=== PATIENT | female | born 1960 | race Caucasian/White ===

== ENCOUNTER → 2020-06-14 | Outpatient (CLI) | payer OTHER | LOC: LAB 18:59 | DX: Z02.83 Encounter for blood-alcohol and blood-drug test (principal) | CPT/HCPCS: 36415 ==

== ENCOUNTER 2020-12-12 11:05 | Emergency (ER) | payer SELFPAY ==
[~2020-12-12] VITALS: Ht 162.6 cm; Wt 67.6 kg
--- NOTE | 2020-12-12 11:18 | PHYS DOC ---
General Adult EDM: Chief Complaint: SEIZURE HPI: HPI: Patient is a 60-year-old female brought in by EMS after a witnessed seizure 50 minutes prior to arrival that lasted about 45 seconds. Patient was at the [facility] to establish care and resume her medications for hypertension. Not been taking her hypertension medications for about 3 months. Patient states that she felt good this morning and when she went to the appointment, denies any stressors or anything abnormal about the conversation. Patient states that she had a sudden onset all over headache with nausea and all over body aches, was getting up to go to the restroom, was last thing she remembered. EMS states t hat she was lowered to the ground and did not fall. On their arrival she was GCS 15 but got report from clinic staff that she was confused for a period after the seizure. Has had both of her Covid vaccines Review of Systems: Review of Systems: All other systems within normal limits except for as noted in the HPI Physical Exam: PE: Constitutional: Well developed, well nourished, no acute distress, non-toxic appearance. [] HENT: Normocephalic, atraumatic, bilateral external ears normal, nose normal. [] Eyes: PERRLA, conjunctiva normal, no discharge. [] Neck: No rigidity, supple, no stridor. [] Cardiovascular: Regular rate and rhythm, brisk cap refill [] Lungs & Thorax: Non labored symmetric respirations, no tachypnea or respiratory distress [] Abdomen: Soft, nondistended. Skin: Warm, dry, no erythema, no rash. [] Back: Unremarkable Extremities: No deformities, range of motion grossly intact, no lower extremity edema [] Neurologic: Alert and oriented X 3, no focal deficits noted. [] Psychologic: Affect normal, judgement normal, mood normal. [] EKG: EKG: Regular regular rhythm, heart rate 170 bpm, left axis deviation, no ST elevation or depression[] Radiology/Procedures: Radiology/Procedures: [address] [address] IMAGING REPORT Signed PATIENT: DEVON YBARRA ACCOUNT: [id number] : 1960 LOCATION: ER AGE: 60 SEX: F EXAM STATUS: REG ER ORD. PHYSICIAN: MELISA IRVIN MD REASON: seizure after sudden onset headache PROCEDURE: CT HEAD WO CONTRAST EXAM: CT head without contrast INDICATION: Seizure, sudden onset headache COMPARISON: None TECHNIQUE: Axial CT imaging through the head without intravenous contrast. One or more of the following individualized dose reduction techniques were utilized for this examination: 1. Automated exposure control 2. Adjustment of the mA and/or kV according to patient size 3. Use of iterative reconstruction technique. FINDINGS: There is diffuse acute subarachnoid hemorrhage throughout the basal cisterns, sylvian fissures, anterior interhemispheric fissure, and frontal, parietal, and temporal lobes sulci. Ventricles are normal in size. No midline shift. No acute fracture. Paranasal sinuses and mastoid air cells are clear. Probable osteoma in the left ethmoid air cells. Globes and orbits are intact. IMPRESSION: Acute subarachnoid hemorrhage, as described. Consider CTA head to evaluate for aneurysm and MRI brain with and without contrast to evaluate for underlying mass. FOR INTERNAL CODING PURPOSES Critical result: Findings discussed with Dr. Irvin at 12/12/2020 11:37 AM. RESULT CODE: (C) Electronically signed by: Melisa Toledo MD (12/12/2020 11:44 AM) [id number] DICTATED AND SIGNED BY: MELISA TOLEDO MD DATE: 12/12/20 1134 CC: MELISA IRVIN MD; PCP,NO ~MTH0 0 [] Heart Score: C/O Chest Pain: No Risk Factors: Risk Factors: DM, Current or recent (<one month) smoker, HTN, HLP, family history of CAD, obesity. Risk Scores: Score 0 - 3: 2.5% MACE over next 6 weeks - Discharge Home Score 4 - 6: 20.3% MACE over next 6 weeks - Admit for Clinical Observation Score 7 - 10: 72.7% MACE over next 6 weeks - Early Invasive Strategies Course & Med Decision Making: Course & Med Decision Making Pertinent Labs and Imaging studies reviewed. (See chart for details) Patient vomiting and not tolerating CD. CT without contrast shows large subarachnoid hemorrhage. Decided to bring patient back to room for pain, and blood pressure management with nicardipine with a goal of systolic less than 140, discussed with [facility] transfer team at 1135. Accepting transfer physician Dr. Shaikh, neuro surgery would like blood pressure further reduced to a systolic of 120. Plan for patient to be seen in the emergency department for stat CT angio and possible IR intervention since bleeding likely due to aneurysm. Patient brought by helicopter to [facility] emergency department neurally intact with a GCS of 15. Total critical care time: 60 The time involved in the performance of separately reportable/billable procedur es was not counted toward critical care time. Due to a high probability of clinically significant, life-threatening deterioration the patient required a high level of care to intervene emergently and I personally spent this critical time directly and personally managing the patient. The critical care time included obtaining a history, examination of the patient, assessment of vital signs, ordering and review of studies, arranging urgent treatment with development of a management plan, evaluation of patient's response to treatment, frequent reassessment, and discussions with other providers and/or family members. [] Theron Disclaimer: Theron Disclaimer: This electronic medical record was generated, in whole or in part, using a voice recognition dictation system. Departure Departure: Impression: Primary Impression: SAH (subarachnoid hemorrhage) Additional Impression: Hypertension Disposition: 02 SHORT TERM HOSPITAL Condition: CRITICAL Referrals: PCP,NO (PCP) MELISA IRVIN MD Dec 12, 2020 11:18
[2020-12-12] MEDS ORDERED: ONDANSETRON PF 4 MG/2 ML VIAL. ONE (11:28)
[2020-12-12] MEDS ORDERED: niCARdipine INJ. IV ONE (11:40)
[2020-12-12] MEDS ORDERED: IV NORMAL SALINE 250ML 250 ML ONE (11:41)
--- NOTE | 2020-12-12 11:47 | RAD ---
EXAM: CT head without contrast INDICATION: Seizure, sudden onset headache COMPARISON: None TECHNIQUE: Axial CT imaging through the head without intravenous contrast. One or more of the following individualized dose reduction techniques were utilized for this examinat ion: 1. Automated exposure control 2. Adjustment of the mA and/or kV according to patient size 3. Use of iterative reconstruction technique. FINDINGS: There is diffuse acute subarachnoid hemorrhage throughout the basal cisterns, sylvian fissures, anter ior interhemispheric fissure, and frontal, parietal, and temporal lobes sulci. Ventricles are normal in size. No midline shift. No acute fracture. Paranasal sinuses and mastoid air cells are clear. Prob able osteoma in the left ethmoid air cells. Globes and orbits are intact. IMPRESSION: Acute subarachnoid hemorrhage, as described. Consider CTA head to evaluate for aneurysm a nd MRI brain with and without contrast to evaluate for underlying mass. FOR INTERNAL CODING PURPOSES Critical result: Findings discussed with Dr. Wren at 12/12/2020 11:37 AM. RESULT CODE: (C) Electronically signed by: Melisa Toledo MD (12/12/2020 11:44 AM) [id number]
[2020-12-12] MEDS ORDERED: ONDANSETRON PF 4 MG/2 ML VIAL. IVP ONE ×3 (12:00→12:30)
[2020-12-12 12:03] LABS: BASO # 0.1 x10^3/uL (0.0-0.2); BASO % 1 % (0-3); EOS # 0.3 x10^3/uL (0.0-0.7); EOS % 1 % (0-3); HEMATOCRIT 44.8 % (36.0-47.0); HEMOGLOBIN 14.9 g/dL (12.0-15.5); LYMPH % 21 % (24-48); MEAN CORPUSCULAR HEMOGLOBIN 31 pg (25-35); MEAN CORPUSCULAR HGB CONC 33 g/dL (31-37); MEAN CORPUSCULAR VOLUME 93 fL (79-100); MONO # 0.9 x10^3/uL (0.0-1.1); MONO % 5 % (0-9); NEUT # 13.3 x10^3uL (1.8-7.7); NEUT % 72 % (31-73); PLATELET COUNT 413 x10^3/uL (140-400); RED BLOOD COUNT 4.82 x10^6/uL (3.50-5.40); RED CELL DISTRIBUTION WIDTH 14.1 % (11.5-14.5); WHITE BLOOD COUNT 18.5 x10^3/uL (4.0-11.0)
[2020-12-12 12:19] LABS: CALCIUM 8.9 mg/dL (8.5-10.1); CREATININE 0.8 mg/dL (0.6-1.0); GFR 73.2; POTASSIUM 3.8 mmol/L (3.5-5.1)
[2020-12-12 12:26] VITALS: BP 133/76
[2020-12-12 12:33] LABS: ALBUMIN 3.9 g/dL (3.4-5.0); MAGNESIUM 2.2 mg/dL (1.8-2.4); PHOSPHORUS 2.8 mg/dL (2.6-4.7); TOTAL BILIRUBIN 0.3 mg/dL (0.2-1.0); TOTAL PROTEIN 7.7 g/dL (6.4-8.2)
[2020-12-12 12:41] LABS: % ATYL 2 % (0-0); % BANDS 5 % (0-9); % LYMPHS 21 % (24-48); % MONOS 6 % (0-10); % SEGS 66 % (35-66); PLT ESTIMATE ADEQUATE (ADEQUATE)
--- NOTE | 2020-12-12 14:25 | EKG ---
[address] [address] Test Date: 2020-12-12 Test Time: 11:35:11 Pat Name: DEVON YBARRA Department: Room: Gender: F Senior Designer: KRUNAL : 1960 Requested By: AMENA IRVIN Order Number: [id number] Reading MD: Measurements Intervals Sidney Rate: 117 P: IA: QRS: 3 QRSD: 90 T: 51 QT: 344 QTc: 485 Interpretive Statements IRREGULAR RHYTHM, NO P-WAVE FOUND NO SPECIFIC ECG ABNORMALITIES RI6.02 No previous ECG available for comparison
== END 2020-12-12 12:42 | disposition short-term general hospital (02) ==
LOC: ER 11:05
DX: I60.9 Nontraumatic subarachnoid hemorrhage, unspecified (principal); I10 Essential (primary) hypertension
CPT/HCPCS: 36415; 70450; 80053; 82550; 83605; 83735; 83874; 84100; 85007; 85025; 93005; 96365; 96374; 96375; 99291; G0480; J2405; J3010; J7050

== ENCOUNTER 2021-01-23 20:30 | Inpatient (IN) | payer SELFPAY ==
[~2021-01-23] VITALS: Ht 162.6 cm; Wt 54.7 kg
[2021-01-23] MEDS ORDERED: MORPHINE SULFATE 4 MG/ML DISP.SYRIN. IV ONE (21:00)
--- NOTE | 2021-01-23 21:05 | PHYS DOC ---
Past History Additional Past Medical Histor: hyperlipidemia anxiety Past Surgical History: No Surgical History Alcohol Use: None Adult General Chief Complaint Chief Complaint: SKIN PROBLEM HPI HPI Patient is a 60-year-old female with a past medical history for stroke with residual deficits including dysphagia status post 1 week from placement of G- tube who presents from the correction at the request of the correction staff for evaluation of her G-tube as they stated it seems like it is red around there and they are worried about infection. Denies any recent travel, traumas, fevers, chest pain, shortness of breath, nausea, vomiting, diarrhea. States that it does hurt around the G-tube, 5 out of 10, dull and achy in nature. States she has been eating and drinking. States she is making urine and stool normally for her. Review of Systems Review of Systems Review of systems otherwise unremarkable except noted in HPI Allergies Allergies Allergies Coded Allergies Type Severity Reaction Last Updated Verified codeine Allergy Unknown 12/12/20 Yes Physical Exam Physical Exam Constitutional: Well developed, well nourished, no acute distress, non-toxic appearance. [] HENT: Normocephalic, atraumatic, oropharynx moist, Eyes: conjunctiva normal, no discharge. [] Neck: Normal range of motion, no tenderness, supple, no stridor. [] Cardiovascular:Heart rate regular rhythm, no murmur [] Lungs & Thorax: Bilateral breath sounds clear to auscultation [] Abdomen: soft, G-tube in left lower quadrant with clear clean hole, G-tube in working order after test, but there is some redness and swelling circumferentially around the hole that is tender, no masses, no pulsatile masses. [] Skin: Warm, dry, no erythema, no rash. [] Back: , no CVA tenderness. [] Extremities: No tenderness, no cyanosis, no clubbing, ROM intact, no edema. [] Neurologic: Alert and oriented X 3, normal motor function, normal sensory function, no focal deficits noted. [] Psychologic: Affect normal, judgement normal, mood normal. [] Current Patient Data Vital Signs Vital Signs Date Time Temp Pulse Resp B/P (MAP) Pulse Ox O2 Delivery O2 Flow Rate FiO2 01/23/21 20:31 98.6 89 20 120/78 (92) 98 Room Air EKG EKG [] Radiology/Procedures Radiology/Procedures [] EXAM: CT Abdomen and Pelvis without IV contrast CLINICAL HISTORY: g-tube pain/swelling/redness COMPARISON: none TECHNIQUE: Helical CT of the abdomen and pelvis without intravenous contrast. Axial, coronal and sagittal reformatted images were generated. PQRS compliance statement - One or more of the following individualized dose reduction techniques were utilized for this study: 1. Automated exposure control 2. Adjustment of the mA and/or kV according to patient size 3. Use of iterative reconstruction technique FINDINGS: Lack of intravenous contrast limits evaluation of solid organs, vasculature, and lymph nodes. Lower chest: Lung bases are clear. Abdomen and Pelvis: Subcentimeter hypodense left hepatic lobe lesion is too small to accurately characterize. Liver is unremarkable. Gallbladder is normal. No biliary ductal dilatation. Pancreas is unremarkable. No focal renal lesion. No hydronephrosis. No hydroureter. Appendix is normal. Moderate colonic stool content is seen. Large volume rectal stool with perirectal infiltration. No small or large bowel dilatation. No bowel obstruction. Gastrostomy tube tip terminates within the stomach. Trace infiltration within the subcutaneous tissues. Thickening left rectus abdominis muscle. No discrete loculated fluid. No abdominal pelvic ascites. Aorta is normal in caliber. Intermittent atherosclerotic calcifications. No abdominal or pelvic lymphadenopathy. Bones: No aggressive osseous lesion is seen. Degenerative changes of lower lumbar spine. IMPRESSION: 1. Gastrostomy tube is seen with tip in the stomach. Trace associated subcutaneous infiltration and asymmetric thickening of the left rectus abdominis, possibly reactive although associated cellulitis is not excluded. No discrete loculated fluid collection. 2. Large volume stool within the rectum with perirectal infiltration may represent stercoral colitis. Electronically signed by: Alan Crouch MD (01/23/2021 10:09 PM) [facility]ENTER[facility]IE Heart Score C/O Chest Pain: No Risk Factors: Risk Factors: DM, Current or recent (<one month) smoker, HTN, HLP, family history of CAD, obesity. Risk Scores: Risk Factors: DM, Current or recent (<one month) smoker, HTN, HLP, family history of CAD, obesity. Course & Med Decision Making Course & Med Decision Making Patient is a 60-year-old female who presents with tenderness and swelling around her G-tube for the last 2 days Vital signs not concerning. Physical exam noted above. Placed on the monitor with IV access established. Given pain medicine. Laboratory analysis not concerning. CT notable for probable G-tube cellulitis and colitis. Started on Rocephin and Flagyl. Discussed all findings with patient and recommended admission for IV antibiotics and continued evaluation and treatment here at [place]. Family grateful, verbalized understanding and agreed with plan of admission. [] Dragon Disclaimer Dragon Disclaimer This electronic medical record was generated, in whole or in part, using a voice recognition dictation system. Departure Departure: Impression: Primary Impression: G-tube site cellulitis Additional Impression: Colitis Disposition: ADMITTED INPATIENT Admitting Physician: Simon Hills Condition: IMPROVED Referrals: PCP,NO (PCP) Problem Qualifiers JONNY DENT MD Jan 23, 2021 21:05
[2021-01-23 21:30] LABS: BASO % 0 % (0-3); EOS # 0.2 x10^3/uL (0.0-0.7); EOS % 2 % (0-3); LYMPH # 1.6 x10^3/uL (1.0-4.8); LYMPH % 15 % (24-48); MEAN CORPUSCULAR HEMOGLOBIN 33 pg (25-35); MEAN CORPUSCULAR HGB CONC 33 g/dL (31-37); MEAN CORPUSCULAR VOLUME 100 fL (79-100); MONO # 0.7 x10^3/uL (0.0-1.1); MONO % 7 % (0-9); NEUT # 8.1 x10^3uL (1.8-7.7); NEUT % 76 % (31-73); PLATELET COUNT 542 x10^3/uL (140-400); RED BLOOD COUNT 3.01 x10^6/uL (3.50-5.40); WHITE BLOOD COUNT 10.7 x10^3/uL (4.0-11.0)
[2021-01-23 21:37] LABS: CREATININE 0.6 mg/dL (0.6-1.0); POTASSIUM 3.8 mmol/L (3.5-5.1)
[2021-01-23 21:42] LABS: ALBUMIN 2.8 g/dL (3.4-5.0); ALBUMIN/GLOBULIN RATIO 0.7 (1.0-1.7); TOTAL BILIRUBIN 0.2 mg/dL (0.2-1.0); TOTAL PROTEIN 6.6 g/dL (6.4-8.2)
--- NOTE | 2021-01-23 22:11 | RAD ---
EXAM: CT Abdomen and Pelvis without IV contrast CLINICAL HISTORY: g-tube pain/swelling/redness COMPARISON: none TECHNIQUE: Helical CT of the abdomen and pelvis without intravenous contrast. Axial, coronal and sagi ttal reformatted images were generated. PQRS compliance statement - One or more of the following individualized dose reduction techniques wer e utilized for this study: 1. Automated exposure control 2. Adjustment of the mA and/or kV according to patient size 3. Use of iterative reconstruction technique FINDINGS: Lack of intravenous contrast limits evaluation of solid organs, vasculature, and lymph nodes. Lower chest: Lung bases are clear. Abdomen and Pelvis: Subcentimeter hypodense left hepatic lobe lesion is too small to accurately characterize. Liver is un remarkable. Gallbladder is normal. No biliary ductal dilatation. Pancreas is unremarkable. No focal renal lesion. No hydronephrosis. No hydroureter. Appendix is normal. Moderate colonic stool content is seen. Large volume rectal stool with perirectal infiltration. No small or large bowel dilatation. No bowel obstruction. Gastrostomy tube tip termina mohsen within the stomach. Trace infiltration within the subcutaneous tissues. Thickening left rectus ab dominis muscle. No discrete loculated fluid. No abdominal pelvic ascites. Aorta is normal in caliber. Intermittent at herosclerotic calcifications. No abdominal or pelvic lymphadenopathy. Bones: No aggressive osseous lesion is seen. Degenerative changes of lower lumbar spine. IMPRESSION: 1. Gastrostomy tube is seen with tip in the stomach. Trace associated subcutaneous infiltration and asymmetric thickening of the left rectus abdominis, possibly reactive although associated cellulitis is not excluded. No discrete loculated fluid collection. 2. Large volume stool within the rectum with perirectal infiltration may represent stercoral colitis . Electronically signed by: Alan Crouch MD (01/23/2021 10:09 PM) MARY
[2021-01-23] MEDS ORDERED: IV RINGERS SOLUTION,LACTATED 1,000 ML IV ONE (22:30)
[2021-01-23] MEDS ORDERED: cefTRIAXone SODIUM 1 GM VIAL ONE (22:59)
[2021-01-23] MEDS ORDERED: IV NORMAL SALINE 50ML 50 ML ONE (22:59)
[2021-01-24 00:33] VITALS: BP 151/88
[2021-01-24] MEDS ORDERED: TICA90TA PO (02:08)
[2021-01-24] MEDS ORDERED: ESOM20CA PO (02:08)
[2021-01-24] MEDS ORDERED: ASPI-630 PO (02:08)
[2021-01-24] MEDS ORDERED: AMLO-186 PO (02:08)
[2021-01-24] MEDS ORDERED: NYST1000 PO (02:08)
[2021-01-24] MEDS ORDERED: MULT-245 PO (02:08)
[2021-01-24] MEDS ORDERED: ACET650S19 PO (02:08)
[2021-01-24] MEDS ORDERED: MELA1LIQ PO (02:08)
[2021-01-24] MEDS ORDERED: METH-560 PO (02:08)
[2021-01-24] MEDS ORDERED: LACO200V IV (02:08)
[2021-01-24] MEDS ORDERED: LEVE100S8 PO (02:08)
[2021-01-24] MEDS: MORPHINE SULFATE 2 MG/ML DISP.SYRIN. IVP PRN ×4 (04:46→21:35)
[2021-01-24 05:00] VITALS: BP 145/84
[2021-01-24] MEDS ORDERED: LACOSAMIDE 200 MG/20 ML VIAL IV SCH (09:30)
[2021-01-24] MEDS: VANCOMYCIN 1 GM in IV NORMAL SALINE 250ML 250 ML IV SCH ×3 (09:40→22:00)
[2021-01-24] MEDS: ASPIRIN CHEWABLE 81 MG TABLET. PEG SCH (09:40)
[2021-01-24] MEDS: TICAGRELOR 90 MG TABLET. PEG SCH ×2 (09:41→21:05)
[2021-01-24] MEDS: MULTIVITAMIN with MINERAL TABLET. PEG SCH (09:41)
[2021-01-24] MEDS: amLODIPine BESYLATE 5 MG TABLET PEG SCH (09:41)
--- NOTE | 2021-01-24 10:54 | HP ---
DATE OF SERVICE: 01/24/2021 ADMIT DATE: 01/23/2021 ATTENDING PHYSICIAN: Dr. Hills. CHIEF COMPLAINT: Infected G-tube site. HISTORY OF PRESENT ILLNESS: The patient is a 60-year-old female who unfortunately has suffered a pretty extensive hemorrhagic stroke. The stroke has affected her left side with significant flaccid paralysis. The speech area of Broca's zone in the left has been preserved. She is able to move her right side and speak fluently. She has significant pain localized gastrostomy tube site. This was placed for dysphagia. There is a zone surrounding about 3 cm diameter and circumferentially from the G-tube site. It is reddened, inflamed and erythematous, tender to palpation. She was given Rocephin. I suspect this will be a Staphylococcus infection. Vancomycin has been ordered. She states that she has also been eating and drinking orally, which is baseline for her. PAST MEDICAL HISTORY: Significant for the hemorrhagic stroke. She has hyperlipidemia and generalized anxiety along with the left-sided hemiparesis. ALLERGIES: SHE HAS ALLERGIES TO CODEINE, EXACT REACTION IS UNCLEAR. CURRENT MEDICATIONS: From the group home were reviewed. She was on scheduled Keppra and Vimpat for seizures, Tylenol, amlodipine, aspirin. The Vimpat is 200 mg b.i.d., Keppra is 1500 mg b.i.d., melatonin, multivitamin, nystatin and Brilinta. She is also taking Nexium and amlodipine. SOCIAL HISTORY: She was a smoker in the past. She is not active smoker. No alcohol use. FAMILY HISTORY: Unobtainable. REVIEW OF SYSTEMS: Significant for the localized symptoms. She is uncomfortable and is in pain. All other systems reviewed and turned out to be negative. PHYSICAL EXAMINATION: GENERAL: When I saw her, this is a pleasant, debilitated female. VITAL SIGNS: Her initial vital signs in the ED showed a blood pressure 108/77, her pulse is 84 and regular. Temperature 99.4 degrees Fahrenheit, oxygen saturation 99% on room air. HEENT: Head is without trauma. Pupils are reactive, but sluggish. NECK: Supple, no bruits. LUNGS: Shallow respirations. CARDIOVASCULAR: Regular heart tones. ABDOMEN: Soft. There is a G-tube in the mid left upper quadrant. The skin surrounding erythema is a bit indurated. It is tender. There is a line of demarcation. There is no guarding or rebound tenderness. EXTREMITIES: Showed significant left-sided flaccid hemiparesis. She is nonambulatory. PERTINENT LABORATORY AND X-RAY STUDIES: Admission hemoglobin was 10.0 g/dL, white count 10,700. Electrolytes within normal range. Creatinine 0.6 mg/dL. Transaminases normal. CT of the abdomen and pelvis showed gastrostomy tube is seen within the tip of the stomach, associated subcutaneous infiltration, asymmetric thickening of the rectus abdominis wall with associated cellulitis, large amount of stool within the rectum and perianal area. ASSESSMENT: 1. A 60-year-old female from a group home. She has a localized cellulitis around the skin surrounding her gastrostomy tube. 2. 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 3. Generalized debilitation. 4. Underlying anxiety with depression. PLAN: 1. Admit to the inpatient unit. 2. Intravenous vancomycin has been started for most likely Staphylococcus infection. 3. We will hold tube feedings for now. 4. Continue home medications, especially the seizure medicines. She remains a full code per advanced directive. JEFFERY/KOJO/SASKIA DR: JEFFERY/mukesh TID: [id number] CC: Mohan Joy MD
[2021-01-24] MEDS: LACOSAMIDE IV SCH ×2 (11:30→21:05)
[2021-01-24] MEDS: DEXTROSE 5% IV SCH ×2 (11:30→21:05)
[2021-01-24 11:31] VITALS: BP 150/89
[2021-01-24 12:41] LABS: BILIRUBIN,URINE NEG (NEG); CLARITY,URINE CLEAR; COLOR,URINE YELLOW; GLUCOSE,URINE NEG (NEG); NITRITE,URINE NEG (NEG); UROBILINOGEN,URINE 0.2 mg/dL (0.2 mg/dL)
[2021-01-24 12:42] LABS: BACTERIA,URINE FEW /HPF (0-FEW); RBC,URINE 0 /HPF (0-2); SQUAMOUS EPITHELIAL CELL,UR FEW /LPF; WBC,URINE OCC /HPF (0-4)
[2021-01-24 15:55] VITALS: BP 125/78
[2021-01-24 19:00] VITALS: BP 147/83
[2021-01-24] MEDS ORDERED: MELATONIN 3 MG TABLET ONE (21:00)
[2021-01-24] MEDS: MELATONIN 3 MG TABLET PEG SCH (21:05)
[2021-01-25] MEDS: MORPHINE SULFATE 2 MG/ML DISP.SYRIN. IVP PRN ×6 (02:46→19:39)
[2021-01-25 06:00] VITALS: BP 149/87
--- NOTE | 2021-01-25 07:13 | PN ---
DATE: 01/25/2021 ATTENDING PHYSICIAN: Dr. Hills. SUBJECTIVE: The patient is comfortable. She is still hemiparetic and bedridden. She has no new complaints. The inflammation site of the G-tube is plasterer tender. OBJECTIVE FINDINGS: VITAL SIGNS: Blood pressure this morning is 147/83. Her pulse is 90 and regular. She is afebrile. Oxygen saturation 97% on room air. HEENT: Head is without trauma. Pupils are reactive. Sclerae nonicteric. The oropharynx appears clear. NECK: Supple, no bruits identified. LUNGS: Otherwise, clear to auscultation. CARDIOVASCULAR: Showed regular heart tones. No gallops. ABDOMEN: Soft. The redness and erythema around the PEG tube site is fading and dissipating, certainly not worse. There is still some tenderness on deep palpation. The induration around the skin is improving, not as hard. Bowel sounds are active. EXTREMITIES: Showed muscle wasting and left-sided hemiparesis. NEUROLOGIC: Speech was otherwise fluent. ASSESSMENT: 1. A 60-year-old female with cellulitis surrounding the gastrostomy tube site, improving with vancomycin. 2. 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 3. History of multiple intracerebral vascular aneurysms resulting in the stroke. 4. Generalized debilitation. 5. Underlying anxiety with depression. PLAN: 1. Continue IV vancomycin as ordered. 2. Serial chemistries. 3. We can restart tube feedings via the feeding tube. 4. Long discussion with the daughter. They are not wanting to go back to the current detention situation. We are looking at a separate facility for next week. YULIA DR: Yogesh TID: [id number] CC: Mohan Joy MD
[2021-01-25] MEDS: LANSOPRAZOLE 30 MG TAB.RAP.DR PEG SCH (08:44)
[2021-01-25] MEDS: TICAGRELOR 90 MG TABLET. PEG SCH ×2 (08:44→20:54)
[2021-01-25] MEDS: amLODIPine BESYLATE 5 MG TABLET PEG SCH (08:44)
[2021-01-25] MEDS: ASPIRIN CHEWABLE 81 MG TABLET. PEG SCH (08:44)
[2021-01-25] MEDS: MULTIVITAMIN with MINERAL TABLET. PEG SCH (08:44)
[2021-01-25] MEDS: VANCOMYCIN 1 GM in IV NORMAL SALINE 250ML 250 ML IV SCH ×2 (09:00→20:55)
[2021-01-25] MEDS: LACOSAMIDE IV SCH ×2 (10:20→19:39)
[2021-01-25] MEDS: DEXTROSE 5% IV SCH ×2 (10:20→19:39)
[2021-01-25 11:05] VITALS: BP 168/84
[2021-01-25 17:12] VITALS: BP 165/92
[2021-01-25] MEDS ORDERED: ALBUTEROL SULFATE 2.5 MG/3 ML NEBU. NEB ONE (19:15)
[2021-01-25 19:30] VITALS: BP 133/78
[2021-01-25] MEDS ORDERED: ALBUTEROL SULFATE 8GM INHALER. INH ONE (19:30)
[2021-01-25] MEDS: MELATONIN 3 MG TABLET PEG SCH (20:54)
[2021-01-25] MEDS ORDERED: MELATONIN 3 MG TABLET ONE (21:00)
[2021-01-26] MEDS: LANSOPRAZOLE 30 MG TAB.RAP.DR PEG SCH (05:57)
[2021-01-26 06:22] VITALS: BP 149/92
--- NOTE | 2021-01-26 08:09 | PN ---
DATE: 01/26/2021 ATTENDING PHYSICIAN: Dr. Hills. SUBJECTIVE: The patient is fairly alert. She remains hemiparetic. She has no new complaints. OBJECTIVE FINDINGS: VITAL SIGNS: Blood pressure this morning is 149/92, pulse is 100 and regular. She is afebrile. Oxygen saturation 98% on room air. HEENT: Head is without trauma. Pupils are reactive. Sclerae nonicteric. Oropharynx clear. NECK: Supple, no bruits or stridor. LUNGS: Clear with good breath sounds. CARDIOVASCULAR: Showed regular heart tones. No gallops. ABDOMEN: Soft. The erythema and redness around the PEG tube site is dissipating and almost completely resolved. The induration is also improved. EXTREMITIES: Show no edema but she has flaccid paralysis involving the left side. LABORATORY DATA: Follow up chemistry panel and a vancomycin trough before the 4th dose is pending. ASSESSMENT: 1. A 60-year-old female with cellulitis surrounding the gastrostomy tube site, improving. 2. Completed hemorrhagic stroke with resultant left sided flaccid paralysis. 3. History of multiple intracerebral vascular aneurysm resulting in stroke. 4. Generalized debilitation. 5. Underlying anxiety with depression. PLAN: 1. Continue IV vancomycin as ordered. 2. Follow up chemistry. 3. Vancomycin trough later today. 4. We can restart her tube feeding. 5. Long discussion with the daughter, they do not want to go back to the current senior living situation. We were looking at different facility for next week. LITO DR: Yogesh TID: [id number]
[2021-01-26 08:31] LABS: ANION GAP 14 (6-14); BLOOD UREA NITROGEN 9 mg/dL (7-20); CALCIUM 9.2 mg/dL (8.5-10.1); CARBON DIOXIDE 24 mmol/L (21-32); CHLORIDE 104 mmol/L (98-107); CREATININE 0.6 mg/dL (0.6-1.0); GLUCOSE 167 mg/dL (70-99); POTASSIUM 3.4 mmol/L (3.5-5.1); SODIUM 142 mmol/L (136-145)
[2021-01-26] MEDS: VANCOMYCIN 1 GM in IV NORMAL SALINE 250ML 250 ML IV SCH ×2 (09:00→16:11)
[2021-01-26] MEDS: amLODIPine BESYLATE 5 MG TABLET PEG SCH (09:58)
[2021-01-26] MEDS: MULTIVITAMIN with MINERAL TABLET. PEG SCH (09:58)
[2021-01-26] MEDS: ASPIRIN CHEWABLE 81 MG TABLET. PEG SCH (09:58)
[2021-01-26] MEDS: TICAGRELOR 90 MG TABLET. PEG SCH ×2 (09:59→20:11)
[2021-01-26] MEDS: MORPHINE SULFATE 2 MG/ML DISP.SYRIN. IVP PRN ×3 (10:00→20:13)
[2021-01-26 10:22] VITALS: BP 140/74
[2021-01-26] MEDS: DEXTROSE 5% IV SCH ×2 (10:26→20:11)
[2021-01-26] MEDS: LACOSAMIDE IV SCH ×2 (10:26→20:11)
[2021-01-26 15:54] VITALS: BP 156/85
[2021-01-26 19:50] VITALS: BP 175/89
[2021-01-26] MEDS: MELATONIN 3 MG TABLET PEG SCH (20:11)
[2021-01-26] MEDS ORDERED: MELATONIN 3 MG TABLET ONE (21:00)
[2021-01-27 06:11] VITALS: BP 102/66
[2021-01-27] MEDS: ASPIRIN CHEWABLE 81 MG TABLET. PEG SCH (08:20)
[2021-01-27] MEDS: amLODIPine BESYLATE 5 MG TABLET PEG SCH (08:20)
[2021-01-27] MEDS: LANSOPRAZOLE 30 MG TAB.RAP.DR PEG SCH (08:20)
[2021-01-27] MEDS: TICAGRELOR 90 MG TABLET. PEG SCH (08:20)
[2021-01-27] MEDS: DEXTROSE 5% IV SCH (08:21)
[2021-01-27] MEDS: LACOSAMIDE IV SCH (08:21)
[2021-01-27] MEDS ORDERED: MULTIVITAMINS,THERAPEUTIC 5 ML ORAL LIQUID. PEG SCH (09:00)
[2021-01-27] MEDS: VANCOMYCIN 1 GM in IV NORMAL SALINE 250ML 250 ML IV SCH (09:36)
[2021-01-27] MEDS: ACETAMINOPHEN 650 MG/20.3 ML SOLUTION. PEG PRN ×2 (09:37→16:30)
--- NOTE | 2021-01-27 10:52 | DS ---
DATE OF DISCHARGE: 01/27/2021 ATTENDING PHYSICIAN: Dr. Hills. FINAL DISCHARGE DIAGNOSES: 1. Cellulitis - gastrostomy tube site, improved. 2. 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 3. Multiple intracerebral vascular aneurysm. 4. Seizure disorder related to stroke. 5. Generalized debilitation. 6. Left hemiparesis. 7. Underlying depression with anxiety. HISTORY AND PHYSICAL: The patient is a 60-year-old female with unfortunate completed stroke, hemorrhagic in nature due to multiple intracerebral aneurysms. She has had coil therapy. She is also on seizure medicines. [facility]. She has a PEG tube for feeding and meds. The area of the skin around it became infected, red and erythematous. She was admitted for IV antibiotics. PHYSICAL EXAMINATION: Please see my dictated note. PERTINENT LABORATORY AND X-RAY STUDIES: Admission hemoglobin was 10.0 g/dL with a white count of 10,700. Subsequent chemistries were drawn. Potassium 3.8 mEq, 142 sodium. Nonfasting blood sugar was 111 and creatinine 0.6 mg percent. Transaminases are normal. COURSE IN HOSPITAL: The patient received 4 full days of intravenous vancomycin with marked improvement. The redness and erythema dissipated. Other home meds continued via the PEG. Arrangements were then made for trying to go to a different [facility]. Unfortunately, the other facility declined. She will return to her current [facility] for the time being. On the fifth hospital day, she was discharged back to [facility]. Her home meds are unchanged. I recommended cephalexin 500 mg p.o. t.i.d. via the PEG for 5 more days and stop. She will continue her amlodipine, aspirin. The Vimpat, Nexium, Keppra, melatonin, nystatin and Brilinta dose is unchanged. Her prognosis is quite guarded. She is a FULL CODE per advanced directive. The patient was then discharged from our hospital in stable condition with explicit drug and followup care. Total discharge time spent 41 minutes. JEFFERY/FELICITY DR: Yogesh TID: [id number] CC: Mohan Joy
[2021-01-27 11:19] VITALS: BP 142/73
--- NOTE | 2021-01-27 19:03 | PN ---
DATE: 01/27/2021 ATTENDING PHYSICIAN: Dr. Hills. SUBJECTIVE: The patient is alert. She said she wanted to go home. She has no concept about what it takes to go home. She has regressed and her attitude has become very infantile. OBJECTIVE FINDINGS: VITAL SIGNS: Blood pressure this morning is 102/68, pulse is 78 and regular. She is afebrile. Oxygen saturation 99% on room air. HEENT: Head is without trauma. Pupils are reactive. Sclerae nonicteric. The oropharynx is clear. NECK: Supple. LUNGS: Clear. CARDIOVASCULAR: Show regular heart tones. ABDOMEN: Soft. The PEG site erythema, redness has resolved. Induration has resolved. SKIN: Warm and the PEG tube is working. EXTREMITIES: Show left-sided hemiparesis. ASSESSMENT: 1. A 60-year-old female with cellulitis around the gastrostomy tube site. 2. 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 3. Multiple intracerebral vascular aneurysm. 4. Generalized debilitation. 5. Underlying anxiety with depression. PLAN: 1. Continue vancomycin. The vancomycin trough is a little bit high and the dose has been adjusted to every 18 hours. 2. We are working on placement. 3. Tube feedings as scheduled. 4. She is Medicaid pending and that we are having a difficult time finding a suitable alternative facility. She may have to return to the original facility. JEFFERY/FELICITY/JERO DR: JEFFERY/mukesh TID: [id number]
== END 2021-01-27 11:30 | disposition home or self-care (01) | DRG 394 ==
LOC: ER 20:30 → 1 SOUTH 22:27
PROVIDERS: ADMIT Hospitalist; ATTEND Hospitalist
DX: K94.22 Gastrostomy infection (principal); G81.04 Flaccid hemiplegia affecting left nondominant side; I62.9 Nontraumatic intracranial hemorrhage, unspecified; L03.311 Cellulitis of abdominal wall; B95.8 Unspecified staphylococcus as the cause of diseases classified elsewhere; E78.5 Hyperlipidemia, unspecified; F41.1 Generalized anxiety disorder; F41.8 Other specified anxiety disorders; G40.909 Epilepsy, unspecified, not intractable, without status epilepticus; I69.391 Dysphagia following cerebral infarction; K52.9 Noninfective gastroenteritis and colitis, unspecified; Z74.01 Bed confinement status; Z87.891 Personal history of nicotine dependence; F41.9 Anxiety disorder, unspecified; Z20.822 Contact with and (suspected) exposure to COVID-19; Z88.8 Allergy status to other drugs, medicaments and biological substances
CPT/HCPCS: 36415; 74176; 80048; 80053; 80202; 81001; 83690; 85025; 87077; 87086; 87186; 96365; 96367; 96375; C9254; J0696; J2270; J3370; J3490; J7050; J7120; U0003; 92610; 97530; 99285-25

== ENCOUNTER 2021-08-16 22:26 | Emergency (ER) | payer OTHER ==
[~2021-08-16] VITALS: Ht 162.6 cm; Wt 54.7 kg
[~2021-08-16 22:26] MED LIST: ACET650S19 PO; AMLO-186 PO; ASPI-630 PO; ESOM20CA PO; LACO200V IV; LEVE100S8 PO; MELA1LIQ PO; METH-560 PO; MULT-245 PO; NYST1000 PO; TICA90TA PO
[2021-08-16 22:47] VITALS: BP 153/84
--- NOTE | 2021-08-16 23:11 | PHYS DOC ---
Past History Additional Past Medical Histor: hyperlipidemia anxiety, BRAIN ANEURSYMx9 Past Surgical History: Other Alcohol Use: Occasionally General Adult EDM: Chief Complaint: UPPER EXTREMITY INJURY HPI: HPI: " .. I fell... just tripped and fell...".. " on the step.. " I ..had a stroke back in June.. and some stents..July 03 at [facility].. so I really weak on my Lt. side....Well I fell on my Lt. side tonight.. and banged my arm up..." " I had nine aneurysms and 2 strokes." Patient is a 60 year old female who presents with trip and fall. Complaints of skin tear lt. forearm and contusion. Patient also has some chest wall tenderness from the fall. Patient has somewhat dense left-sided weakness both legs and arm. Has some contraction of left hand from the previous CVAs. Patient follows with Dr. Duran locally. And Dr. Alvarez neurology down at [facility] on the [address]. No other injury and fall. Patient does have a skin tear to left forearm and contusion. Patient up-to-date with vaccinations including tetanus. Patient COVID x2 and flu vaccine x1, and new vaccine x1. Patient is unsure if she had zoster vaccination. No history immunosuppression. No history recent change in meds. No recent travel. No recent specific ill contacts. Review of Systems: Review of Systems: Constitutional: Denies fever or chills Eyes: Denies change in visual acuity HENT: Denies nasal congestion or sore throat Respiratory: Left chest wall tenderness Cardiovascular: Denies chest pain or edema GI: Denies abdominal pain, nausea, vomiting, bloody stools or diarrhea : Denies dysuria Musculoskeletal: Complains of left forearm pain and skin tear Integument: Denies rash Neurologic: Denies headache, focal weakness or sensory changes Endocrine: Denies polyuria or polydipsia Lymphatic: Denies swollen glands Psychiatric: Denies depression or anxiety Family History: Family History: Noncontributory to presentation Current Medications: Current Meds: See nursing for home meds Allergies: Allergies: Allergies Coded Allergies Type Severity Reaction Last Updated Verified codeine Allergy Unknown 12/12/20 Yes Physical Exam: PE: Constitutional: Mild distress, non-toxic appearance. [] HENT: Normocephalic, atraumatic, bilateral external ears normal, oropharynx moist, no oral exudates, nose normal. [] Eyes: PERRLA, EOMI, conjunctiva normal, no discharge. [] Neck: Normal range of motion, no tenderness, supple, no stridor. [] Cardiovascular:Heart rate regular rhythm, no murmur [] Lungs & Thorax: Bilateral breath sounds equal apex on auscultation [left chest wall tenderness Abdomen: Bowel sounds normal, soft, no tenderness, no masses, no pulsatile masses. Scar Skin: Warm, dry, no erythema, no rash. [] Back: No tenderness, no CVA tenderness. [] Extremities: No tenderness, no cyanosis, no clubbing, ROM limited on left side, no edema. Except findings in left forearm Neurologic: Alert and oriented X 3, left-sided deficits and motor. The patient can t moves all extremities, does have sensation distally no new focal deficits noted per patient Psychologic: Affect anxious, judgement normal, mood normal. [] Current Patient Data: Vital Signs: Vital Signs Date Time Temp Pulse Resp B/P (MAP) Pulse Ox O2 Delivery O2 Flow Rate FiO2 08/16/21 22:47 98.2 78 18 153/84 (107 97 Room Air EKG: EKG: [] Radiology/Procedures: Radiology/Procedures: [[address] [address] IMAGING REPORT Signed PATIENT: DEVON YBARRA ACCOUNT: [id number] : 1960 LOCATION: ER AGE: 60 SEX: F EXAM STATUS: REG ER ORD. PHYSICIAN: BEVERLY JACKMAN MD REASON: fall on stairs PROCEDURE: CHEST PA & LATERAL Chest radiograph 08/16/2021 11:17 PM INDICATION: Fall on stairs, unable to move left arm COMPARISON: None available TECHNIQUE: Frontal and lateral views of the chest are provided. FINDINGS: The cardiomediastinal silhouette is within normal limits. Flattening of the diaphragms may be assisted with air trapping as may be seen with COPD. There are no pleural effusions. There is no pulmonary vascular congestion. There is no pneumothorax. The lungs are clear. No significant osseous abnormality is identified. IMPRESSION: No acute cardiopulmonary process. There is suggestion of COPD changes. Electronically signed by: Cornell Rosenberg MD (08/17/2021 12:00 AM) [facility] DICTATED AND SIGNED BY: CORNELL ROSENBERG MD DATE: 08/16/21 [id number] CC: BEVERLY JACKMAN MD; CONCHIS DURAN MD ~ ][place] [address] IMAGING REPORT Signed PATIENT: DEVON YBARRA ACCOUNT: [id number] : 1960 LOCATION: ER AGE: 60 SEX: F EXAM STATUS: REG ER ORD. PHYSICIAN: BEVERLY JACKMAN MD REASON: fall on stairs PROCEDURE: FOREARM LEFT EXAM: LEFT FOREARM 2 VIEWS. HISTORY: Fall, pain. COMPARISON: None. FINDINGS: There is focal soft tissue swelling along the medial mid forearm. No fractures are identified. Osteopenia is at least moderate. The joint spaces and alignment of the wrist and elbow appear maintained. IMPRESSION: 1. Soft tissue swelling. No fracture. Electronically signed by: Haroon Lee MD (08/17/2021 12:12 AM) [facility] DICTATED AND SIGNED BY: STACEY LEE MD DATE: 08/17/21 001 CC: BEVERLY JACKMAN MD; CONCHIS DURAN MD ~ Heart Score: C/O Chest Pain: N/A Risk Factors: Risk Factors: DM, Current or recent (<one month) smoker, HTN, HLP, family history of CAD, obesity. Risk Scores: Score 0 - 3: 2.5% MACE over next 6 weeks - Discharge Home Score 4 - 6: 20.3% MACE over next 6 weeks - Admit for Clinical Observation Score 7 - 10: 72.7% MACE over next 6 weeks - Early Invasive Strategies Course & Med Decision Making: Course & Med Decision Making Pertinent Labs and Imaging studies reviewed. (See chart for details) Patient use ice packs as needed for reduction of swelling. Take Tylenol and ibuprofen for pain. Polysporin to the skin tear 4 times a day until healed. Follow-up primary care. Review ED record. Impression: 1. Trip and fall 2. Left forearm contusion and skin tear 3. Left-sided deficits from previous CVAs x2 [] Dragon Disclaimer: Dragon Disclaimer: This electronic medical record was generated, in whole or in part, using a voice recognition dictation system. Departure Departure: Referrals: CONCHIS DURAN MD (PCP) Theron Disclaimer This chart was dictated in whole or in part using Voice Recognition software in a busy, high-work load, and often noisy Emergency Department environment. It may contain unintended and wholly unrecognized errors or omissions. BEVERLY JACKMAN MD August 16, 2021 23:11
--- NOTE | 2021-08-17 00:02 | RAD ---
Chest radiograph 08/16/2021 11:17 PM INDICATION: Fall on stairs, unable to move left arm COMPARISON: None available TECHNIQUE: Frontal and lateral views of the chest are provided. FINDINGS: The cardiomediastinal silhouette is within normal limits. Flattening of the diaphragms may be assiste d with air trapping as may be seen with COPD. There are no pleural effusions. There is no pulmonary vascular congestion. There is no pneumothorax. The lungs are clear. No significant osseous abnormality is identified. IMPRESSION: No acute cardiopulmonary process. There is suggestion of COPD changes. Electronically signed by: Louise Espinal MD (08/17/2021 12:00 AM) [facility]
--- NOTE | 2021-08-17 00:14 | RAD ---
EXAM: LEFT FOREARM 2 VIEWS. HISTORY: Fall, pain. COMPARISON: None. FINDINGS: There is focal soft tissue swelling along the medial mid forearm. No fractures are identifi ed. Osteopenia is at least moderate. The joint spaces and alignment of the wrist and elbow appear jovany ntained. IMPRESSION: 1. Soft tissue swelling. No fracture. Electronically signed by: Haroon Lee MD (08/17/2021 12:12 AM) [facility]
== END 2021-08-17 02:10 | disposition home or self-care (01) ==
LOC: ER 22:26
DX: S51.812A Laceration without foreign body of left forearm, initial encounter (principal); R07.89 Other chest pain; E78.5 Hyperlipidemia, unspecified; Z86.73 Personal history of transient ischemic attack (TIA), and cerebral infarction without residual deficits; Z88.5 Allergy status to narcotic agent; W01.0XXA Fall on same level from slipping, tripping and stumbling without subsequent striking against object, initial encounter; Y93.89 Activity, other specified; Y92.89 Other specified places as the place of occurrence of the external cause; Y99.8 Other external cause status
CPT/HCPCS: 71046; 73090; 99284